=== PATIENT | male | born 1970 | race Caucasian/White ===

== ENCOUNTER 2016-12-18 01:09 | Emergency (ER) | payer OTHER ==
[~2016-12-18] VITALS: Ht 177.8 cm; Wt 108.0 kg
[2016-12-18 01:18] VITALS: BP 179/87; PULSE 96; RESP 18; O2SAT 95
[2016-12-18] MEDS ORDERED: AMLO10TA2 PO (01:30)
[2016-12-18] MEDS ORDERED: BYST10TA2 PO (01:30)
[2016-12-18] MEDS ORDERED: ATOR10TA15 PO (01:30)
[2016-12-18] MEDS ORDERED: RANI150T PO (01:30)
[2016-12-18] MEDS ORDERED: TRIA37.5 PO (01:30)
[2016-12-18] MEDS ORDERED: CLON0.2T PO (01:38)
--- NOTE | 2016-12-18 01:43 | PD ---
HPI Chief Complaint: Respiratory Symptoms Time Seen by Provider: 01:14 Travel History International Travel<30 days: No Contact w/Intl Traveler<30days: No Traveled to known affect area: No History of Present Illness HPI This patient has long-standing history of hypertension. He is here vacationing from [place]. He checked his blood pressure in his hotel room and got 256 systolic. He got very anxious about this and called paramedics. Ambulance brought him to the emergency room. No syncope or palpitations or chest pain or neurologic complaint. Not having any headache. Blood pressure at this time is 171/89. He reports compliance with his medications of hydrochlorothiazide and amlodipine. Symptoms severity is mild. Duration 1 hour PFSH Past Medical History Cardiovascular Problems: Yes High Cholesterol: Yes Diabetes: Yes Patient Takes Glucophage: Yes Diminished Hearing: No Hypertension: Yes Social History Alcohol Use: Yes Tobacco Use: No Substance Use: No Allergies-Medications (Allergen,Severity, Reaction): Coded Allergies: No Known Allergies (Unverified , 12/18/16) Reported Meds & Prescriptions Reported Meds & Active Scripts Active Clonidine (Clonidine HCl) 0.2 Mg Tab 0.2 Mg PO Q8HR PRN Reported Ranitidine (Ranitidine HCl) 150 Mg Tab 150 Mg PO BID Amlodipine (Amlodipine Besylate) 10 Mg Tab 10 Mg PO DAILY Bystolic (Nebivolol) 10 Mg Tab 10 Mg PO DAILY Atorvastatin (Atorvastatin Calcium) 10 Mg Tab 10 Mg PO HS Triamterene-Hydrochlorothiazide 37.5-25 Mg Tab 1 Tab PO DAILY Review of Systems General / Constitutional: No: Fever Eyes: No: Visual changes HENT: No: Headaches Cardiovascular: No: Chest Pain or Discomfort Respiratory: No: Shortness of Breath Gastrointestinal: No: Abdominal Pain Genitourinary: No: Dysuria Musculoskeletal: No: Pain Skin: No Rash Neurologic: No: Weakness Psychiatric: No: Depression Endocrine: No: Polydipsia Hematologic/Lymphatic: No: Easy Bruising Physical Exam Narrative CARDIOVASCULAR: Regular rate and rhythm with a 2/6 systolic murmur. Extremities showed no edema or varicosities. RESPIRATORY: Respiratory effort unlabored, no retractions or use of accessory muscles. Breath sounds are clear and symmetric. NECK: Symmetrical appearance, midline trachea. No mass or crepitus. Thyroid without enlargement, tenderness, or mass. GASTROINTESTINAL: Abdomen soft, non-tender, nondistended. Positive bowel sounds. No hepato-splenomegaly, or palpable masses. No guarding. SKIN: Focused skin assessment reveals no rash or ulcers. Skin is warm and dry. Palpation shows no induration or nodules. Psych: Normal mood and affect. Normal insight and judgment. Data Data Last Documented VS Vital Signs Date Time Temp Pulse Resp B/P Pulse Ox O2 Delivery O2 Flow Rate FiO2 12/18/16 01:18 96 18 179/87 95 Orders Electrocardiogram (12/18/16 ) MDM Medical Decision Making Medical Screen Exam Complete: Yes Emergency Medical Condition: Yes Medical Record Reviewed: Yes Differential Diagnosis Hypertensive urgency, accelerated hypertension, anxiety Narrative Course I have reviewed the patient's electronic medical record. Blood pressure 171/89 at this time I reviewed his EKG which shows sinus rhythm but no ST elevation Is neurologically intact Had a lengthy discussion with him and family about hypertension management. Advised that he check and record his blood pressure daily Since he is here on vacation for a few more days I've written him 7 doses of clonidine to use on an as-needed basis only if blood pressures exceeding 200/100 We discussed that the importance is a long-term trend rather than minute to minute management Diagnosis Primary Impression: Accelerated hypertension Additional Instructions: The patient was advised to follow up with their physician and return if they worsen. Check and record blood pressure daily Can take a single dose of clonidine if blood pressure exceeds 200/100 Med/Other Pt SpecificInfo: Prescription(s) given Scripts Clonidine 0.2 Mg Tab0.2 Mg PO Q8HR PRN (SBP>200, DBP>100) #7 TAB Ref 0 Prov:Samuel John MD 12/18/16 Disposition: DISCHARGE HOME Condition: Stable Samuel John MD Dec 18, 2016 01:43
[2016-12-18] MEDS ORDERED: ZOFR4TAB PO (02:08)
[2016-12-18] MEDS ORDERED: ONDANSETRON HCL 4 MG/2 ML VIAL IV ONE (02:15)
--- NOTE | 2016-12-18 16:10 | EKG ---
Date Performed: 12/18/2016 Time Performed: 01:16:59 PTAGE: 46 years EKG: Sinus rhythm WITH SINUS ARRHYTHMIA POSSIBLE LEFT ATRIAL ENLARGEMENT BORDERLINE ECG NO PREVIOUS TRACING DOCTOR: Tomer Agarwal Interpretating Date/Time 12/18/2016 16:09:12
== END 2016-12-18 03:10 | disposition home or self-care (01) ==
LOC: NEPC 01:09
DX: I10 Essential (primary) hypertension (principal)
CPT/HCPCS: 93005; 96374; 99284; J2405